=== PATIENT | male | born 1975 | race Caucasian/White ===

== ENCOUNTER 2020-06-28 12:10 | Emergency (ER) | payer OTHER, SELFPAY ==
[2020-06-28 12:14] VITALS: BP 157/96; PULSE 93; RESP 18; TEMP 36.5; O2SAT 99; BMI 34.4
--- NOTE | 2020-06-28 12:18 | RAD_ITS ---
STUDY: X-RAY - RIGHT ANKLE REASON FOR EXAM: Male, 44 years old. Injury. TECHNIQUE: 3 view(s) of the ankle. COMPARISON: None. FINDINGS: There is a minimally displaced posterior malleolar fracture off the posterior tibia. There is a mildly displaced oblique fracture of the distal fibular diametaphysis.. There is slight lateral subluxation/dislocation of the tibiotalar articulation. Normal visualized talus and calcaneus. The visualized subtalar, talonavicular, calcaneocuboid and tarsal articulations are normal. Diffuse soft tissue swelling about the ankle. RAD/Ankle min 3 Views IMPRESSION: Fracture/dislocation of the right ankle. Electronically Signed: Emir Holder DO at 12:51 EST Tel [phone], Service support ,
--- NOTE | 2020-06-28 12:30 | ED.DCSUM_ITS ---
- ER Visit Summary Date of Service: 06/28/20 Chief Complaint: [Injury to right ankle] History of Present Illness: The patient is a 44 M [presents to the emergency department with an injury to the right ankle that occurred approximately 9:45 AM. Patient states that he was on a trail run when he hit some ice and his ankle went one way and his body the other. Patient did fall. Patient unable to bear weight afterwards. People he was with were able to get him a crutch in a boot and he was able to get to safety where his could pick him up and she brought him to the emergency department. Patient denies any other injuries. Patient rates his pain a 6 or 7 out of 10. Patient has no medical history.] Physical Examination: [HEENT-PERRLA, EOMI. Cranial nerves II through XII grossly intact. TMs clear. Mucous membranes moist. No adenopathy. Cardiovascular-regular rate and rhythm without murmur or ectopy Lungs-clear to auscultation, chest wall stable without crepitus or subcu emphysema Abdomen-normoactive bowel sounds, soft, nontender, no rebound or rigidity, no peritoneal signs. Extremities-intact ?4, normal range of motion, normal pulses. Right ankle- patient has diffuse soft tissue swelling about the ankle. He has limited range of motion secondary to pain. No pain at the proximal fibular head. No pain at the base of the fifth metatarsal. Patient has tenderness over the medial and lateral malleolus.] Test Results: [X-rays of the right ankle 3 views obtained read by myself as distal fibula fracture with fracture of the posterior malleolus and widening of the ankle mortise medially. Radiology in agreement.] Emergency Department Course and Treatment: [Patient was medicated with Dilaudid 1 mg IM as well as Zofran 4 mg IM. Case was discussed with orthopedic surgeon on-call Dr. Shaka Delgado who asked that we place patient in a sugar tong and posterior splint and have him follow-up with our office.] Treatment Plan: [Patient advised to ice and elevate the extremity. Patient will be given a prescription for [place] for pain. Patient to follow-up with orthopedic surgeon in 3 to 5 days.] Disposition: [Discharged home in stable condition] Impression: [Bimalleolar right ankle fracture] This note was generated with Dragon dictation software. It may contain incorrect words, spelling, and punctuation that were not noted in review of the chart prior to signing ED Disposition - Plan for ED Patient: Referrals: Grace Friedman MD [NON-STAFF] -
[2020-06-28] MEDS: Ondansetron 4 MG/2 ML Vial IM (12:46)
[2020-06-28] MEDS: HYDROmorphone 1 MG/ML Syringe IM (12:46)
--- NOTE | 2020-06-28 13:28 | DCINST.ED_ITS ---
ED Disposition - Plan for ED Patient: Instructions: ED Ankle Fracture Prescriptions: Hydrocodone Bitart/Apap 5-325 [[place] 5MG-325MG] 1 tab PO Q4H PRN PRN 2 Days #20 tab PRN Reason: Pain Prescription Printed Referrals: Grace Friedman MD [NON-STAFF] - Shaka Delgado MD [STAFF PHYSICIAN] - 3-5 Days
[2020-06-28 13:45] VITALS: BP 138/76
== END 2020-06-28 13:46 | disposition home or self-care (01) ==
PROVIDERS: Emergency Provider Emergency Medicine; PCP Family Medicine
DX: S82.841A Displaced bimalleolar fracture of right lower leg, initial encounter for closed fracture (principal); W00.9XXA Unspecified fall due to ice and snow, initial encounter; Y93.02 Activity, running; Y92.89 Other specified places as the place of occurrence of the external cause; Y99.8 Other external cause status
CPT/HCPCS: 29515; 73610; 96372; 99282; J2405

== ENCOUNTER → 2024-05-18 | Outpatient (CLI) | payer OTHER, SELFPAY ==
--- NOTE | 2024-05-18 06:54 | EKG12_ITS ---
Test Reason : PRE OP Blood Pressure : */* mmHG Vent. Rate : 98 BPM Atrial Rate : 98 BPM P-R Int : 158 ms QRS Dur : 82 ms QT Int : 336 ms P-R-T Axes : 35 7 68 degrees QTcB Int : 428 ms Normal sinus rhythm Nonspecific ST and T wave abnormality Abnormal ECG Confirmed by BRIAN RYAN, CHRIS ([id number]), television news video editor SHERRY GOMEZ ([id number]) on 05/18/2024 1:24:33 PM Referred By: Darnell Hartman Confirmed By: CHRIS TORRES MD
== END | disposition home or self-care (01) ==
LOC: PSN 06:50
PROVIDERS: PCP Family Medicine; Referring Provider Otolaryngology; Visit Provider Otolaryngology
DX: Z01.810 Encounter for preprocedural cardiovascular examination (principal)
CPT/HCPCS: 93005

== ENCOUNTER → 2024-05-21 | Outpatient (CLI) | payer OTHER, SELFPAY ==
--- NOTE | 2024-05-21 | SEP_PTH ---
PATIENT: PATRICK COHN LOC: [facility] U#:[id number] AGE/SX: 48/M ROOM: RE05/21/[address]: Dr. Darnell Hartman MD : 1975 BED: DIS: 05/21/2024 SPEC #: [id number] RECD: 05/23/24 09:09 STATUS: MALISSA KELLY #: [id number] CLARISSA: 05/21/24 00:[address]: Darnell Hartman DEPT: SURGICAL PATHOLOGY RECD BY: Christianne Mallory ENTERED: 05/23/24 09:09 SP TYPE: SEPTUM OTHR DR: Dr. Clark Meyer MD Tissues: Nasal septum, NOS Procedures: Surgery Specimen Level III HEADER OPERATION: Septoplasty, submucous resection of inferior turbinates PRE-OP DIAGNOSIS: Nasal congestion, deviated nasal septum, hypertrophy of nasal turbunates TISSUE SUBMITTED: Septum MICROSCOPIC DIAGNOSIS Septum, septoplasty: Fragments of bone and cartilage, clinically deviated nasal septum. . 05/28/2024 MICROSCOPIC DESCRIPTION Slides are reviewed. GROSS DESCRIPTION Received in fixative is one container labeled with the patient's name and designated Septum. The specimen consists of multiple fragments of bone and cartilage that in aggregate measure 3 x 3 x 1 cm. [employer] tissue is submitted in one cassette after decalcification. .mr 05/23/2024 TC:5 CPT:17062,04614
== END | disposition home or self-care (01) ==
PROVIDERS: PCP Family Medicine; Referring Provider Otolaryngology; Visit Provider Otolaryngology
DX: J34.2 Deviated nasal septum (principal); J34.3 Hypertrophy of nasal turbinates
CPT/HCPCS: 88304